=== PATIENT | female | born 1980 | race Caucasian/White ===

== ENCOUNTER 2018-04-12 09:23 | Outpatient (RCR) | payer SELFPAY ==
[2018-04-12 09:42] VITALS: BP 135/90; PULSE 73; RESP 18; TEMP 37; BMI 26.7
--- NOTE | 2018-04-12 11:52 | PCM.WC.HP ---
(1) Traumatic wound Status: Acute Current Visit: Yes Comment: Left middle finger. With fat layer exposed. History of Present Illness Date of Service: 04/12/18 Chief Complaint: Nonhealing left middle finger wound. History of Wound: Ms. Iraheta is a 37-year-old who was in her stable state of health until about 3 weeks ago when she sustained an injury to her left middle finger at work. She was working on some parts and had a finger crushed in the middle. She was subsequently seen at an day care center director center and had stitches to the wound. She has however noted persistent pain and swelling of the finger. She states that she has had 2 x-rays done without any significant concerns for osteomyelitis. She also denies any significant discharge from the wound. She has noted some change in color. Past Medical History Allergies/Adverse Reactions: Allergies erythromycin base Adverse Reaction (Verified 04/12/18 10:04) Nausea Smoking Status: Current every day smoker Review of Systems Constitutional: Denies: Anorexia, Chills, Fever Eyes: Denies: Blurred vision, Pain, Redness HEENT: Denies: Difficulty Swallowing Cardiovascular: Denies: Chest Pain, Chest Tightness Respiratory: Denies: Cough, Hemoptysis Gastrointestinal: Denies: Abdominal Pain, Hematemesis, Vomiting Genitourinary: Denies: Hematuria Skin: Denies: Jaundice - Physical Exam Vital Signs Temp Pulse Resp BP 98.6 F 73 18 135/90 H 04/12/18 09:42 04/12/18 09:42 04/12/18 09:42 04/12/18 09:42 General: Alert, Oriented x3, Cooperative, No apparent distress HEENT: Atraumatic, Normocephalic Oral: Moist Mucosa Neck: Supple Lungs: Clear to auscultation, Normal air movement Cardiovascular: Regular rate, Regular Rhythm Abdomen: Non Tender Extremities: No cyanosis Skin: Ulcer/ Wound Wound Measurements and Assessment WC - Nurse 1 - General Ulcer Measurement Start: 04/12/18 09:10 Freq: Status: Active Protocol: Activity Type Activity Date Activity User E-Sign Co-Sign Detail Recorded Client Recorded Date Recorded By Document 04/12/18 09:42 DL [id number] 04/12/18 09:57 DL 04/12/18 09:42 Wound Center Nurse 1 [Ulcer Assessment] #1 LMidle Finger -Current Size (cm) - Length 2 -Current Size (cm) - Width 1.2 -Current Size (cm) - Depth 0.1 -Total Square Cm 2.4 -Photo Taken Yes -Classification - Thickness Unclassifiable (Eschar Covered ) -Exudate Amt Small -Exudate Type Serosanguineous -Wound Margin Distinct, Outline Attached -Granulation Amt None Present (0 %) -Necrosis Amt Large (67-100%) -Necrotic Tissue Type Eschar -Structure Exposed N/A -Texture (Deborah-wound Skin Appearance) Localized Edema Scarring -Moisture (Deborah-wound Skin Appearance Maceration ) -Color (Deborah-wound Skin Appearance) Ecchymosis Erythema Mottled -Temperature (Deborah-wound Skin No Abnormality Appearance) (Pt Warm) -Tenderness on Palpation (Deborah-wound No Skin Appearance) -Ulcer Cleansing Rinsed/ Irrigated with Saline -Foul Odor after Cleansing No -Anesthetic Used 4% Lidocaine Solution WC - Nurse 2 - General Ulcer CM Notes Start: 04/12/18 09:10 Freq: Status: Active Protocol: Activity Type Activity Date Activity User E-Sign Co-Sign Detail Recorded Client Recorded Date Recorded By Document 04/12/18 10:24 MW [id number] 04/12/18 10:38 MW 04/12/18 10:24 Wound Center Nurse 2 [Procedure/Treatment] -Time 10:25 -Correct Patient Yes -Correct Side, Site, Position Yes -Correct Procedure Yes -Procedure Performed Yes -Type of Procedure Debridement -Clinical Debridement Subcutaneous -Post Debridement Size (cm) - Length 2.5 -Post Debridement Size (cm) - Width 1.0 -Post Debridement Size (cm) - Depth 0.2 -Total Square Cm 2.50 -Wound/Ulcer Outcome Not Healed -Ulcer Cleansing Rinsed/ Irrigated with Saline -Foul Odor after Cleansing No -Bioengineered Tissue No -Bleeding Controlled with Pressure -Offloading No -Treatment Response Procedure Tolerated Well [See Physician Procedure note for Specifics] Pain Scale: 0-10 Numeric [Pain] -Is Patient Pain Free? Yes Musculoskeletal: No Muscle Wasting Neurological: Cranial nerves II-XII grossly intact Debridement Note Post-Debridement Measurements/Treatment WC - Nurse 2 - General Ulcer CM Notes Start: 04/12/18 09:10 Freq: Status: Active Protocol: Activity Type Activity Date Activity User E-Sign Co-Sign Detail Recorded Client Recorded Date Recorded By Document 04/12/18 10:24 MW [id number] 04/12/18 10:38 MW 04/12/18 10:24 Wound Center Nurse 2 #1 LMidle Finger -Time 10:25 -Correct Patient Yes -Correct Side, Site, Position Yes -Correct Procedure Yes -Procedure Performed Yes -Type of Procedure Debridement -Clinical Debridement Subcutaneous -Post Debridement Size (cm) - Length 2.5 -Post Debridement Size (cm) - Width 1.0 -Post Debridement Size (cm) - Depth 0.2 -Total Square Cm 2.50 -Wound/Ulcer Outcome Not Healed -Ulcer Cleansing Rinsed/ Irrigated with Saline -Foul Odor after Cleansing No -Bioengineered Tissue No -Bleeding Controlled with Pressure -Offloading No -Treatment Response Procedure Tolerated Well Pain Scale: 0-10 Numeric Is Patient Pain Free? Yes Wound debrided: Left middle finger Wound Grade/Stage: Stage II Type of Debridement: Excisional debridement Anesthesia Used: 4% Lidocaine Solution Depth: Down to and including healthy tissue, in the subcutaneous layer Percentage of wound debrided: 100 Instrument Used: Forceps, - - Scissors Tissue Removed: Devitalized tissue Severity: Fat Layer Exposed Amount of bleeding with debridement: Mild Bleeding Controlled with: Pressure Patient tolerated procedure well Assessment/Plan Active Problems Traumatic wound (Acute) Left middle finger. With fat layer exposed. Assessment: Nonhealing traumatic wound to left middle finger with fat layer exposed. Plan: Debridement done as documented above. Significant pain noted however tolerated procedure okay. Superficial skin appears somewhat necrotic however underlying wound appears to have good granulation tissue and no significant discharge. Cultures taken. Will get records from [facility]. For now dress wound daily with Sheila, gauze over top. Continue splinting. Applied loosely. Elevate extremity as often as possible. Will start on nifedipine for vasodilation. She was however advised to go to the emergency room if she notes significant discoloration. All the questions were answered and she was advised to call with any further questions or concerns. Follow-up in 1 week. This note was generated with [employer]EV[employer] software. It may contain incorrect words, spelling, and punctuation that were not noted in checking the note before signing.
--- NOTE | 2018-04-12 11:56 | HP.PCM_ITS ---
(1) Traumatic wound Status: Acute Current Visit: Yes Comment: Left middle finger. With fat lay er exposed. History of Present Illness Date of Service: 04/12/18 Chief Complaint: Nonhealing left middle finger wound. History of Wound: Ms. Iraheta is a 37-year-old who was in her stable state of health until about 3 weeks ago when she sustained an injury to her left middle finger at work. She was working on some parts and had a finger crushed in the middle. 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 She has however noted persistent pain and swelling of the finger. She states that she has had 2 x-rays done without any significant concerns for osteomyelitis. She also denies any significant discharge from the wound. She has noted some change in color. Past Medical History Allergies/Adverse Reactions: Allergies erythromycin base Adverse Reaction (Verified 04/12/18 10:04) Nausea Smoking Status: Current every day smoker Review of Systems Constitutional: Denies: Anorexia, Chills, Fever Eyes: Denies: Blurred vision, Pain, Redness HEENT: Denies: Difficulty Swallowing Cardiovascular: Denies: Chest Pain, Chest Tightness Respiratory: Denies: Cough, Hemoptysis Gastrointestinal: Denies: Abdominal Pain, Hematemesis, Vomiting Genitourinary: Denies: Hematuria Skin: Denies: Jaundice - Physical Exam Vital Signs Temp Pulse Resp BP 98.6 F 73 18 135/90 H 04/12/18 09:42 04/12/18 09:42 04/12/18 09:42 04/12/18 09:42 General: Alert, Oriented x3, Cooperative, No apparent distress HEENT: Atraumatic, Normocephalic Oral: Moist Mucosa Neck: Supple Lungs: Clear to auscultation, Normal air movement Cardiovascular: Regular rate, Regular Rhythm Abdomen: Non Tender Extremities: No cyanosis Skin: Ulcer/ Wound Wound Measurements and Assessment WC - Nurse 1 - General Ulcer Measurement Start: 04/12/18 09:10 Freq: Status: Active Protocol: Activity Type Activity Date Activity User E-Sign Co-Sign Detail Recorded Client Recorded Date Recorded By Document 04/12/18 09:42 DL [id number] 04/12/18 09:57 DL 04/12/18 09:42 Wound Center Nurse 1 [Ulcer Assessment] #1 LMidle Finger -Current Size (cm) - Length 2 -Current Size (cm) - Width 1.2 -Current Size (cm) - Depth 0.1 -Total Square Cm 2.4 -Photo Taken Yes -Classification - Thickness Unclassifiable (Eschar Covered ) -Exudate Amt Small -Exudate Type Serosanguineous -Wound Margin Distinct, Outline Attached -Granulation Amt None Present (0 %) -Necrosis Amt Large (67-100%) -Necrotic Tissue Type Eschar -Structure Exposed N/A -Texture (Deborah-wound Skin Appearance) Localized Edema Scarring -Moisture (Deborah-wound Skin Appearance Maceration ) -Color (Deborah-wound Skin Appearance) Ecchymosis Erythema Mottled -Temperature (Deborah-wound Skin No Abnormality Appearance) (Pt Warm) -Tenderness on Palpation (Deborah-wound No Skin Appearance) -Ulcer Cleansing Rinsed/ Irrigated with Saline -Foul Odor after Cleansing No -Anesthetic Used 4% Lidocaine Solution WC - Nurse 2 - General Ulcer CM Notes Start: 04/12/18 09:10 Freq: Status: Active Protocol: Activity Type Activity Date Activity User E-Sign Co-Sign Detail Recorded Client Recorded Date Recorded By Document 04/12/18 10:24 MW [id number] 04/12/18 10:38 MW 04/12/18 10:24 Wound Center Nurse 2 [Procedure/Treatment] -Time 10:25 -Correct Patient Yes -Correct Side, Site, Position Yes -Correct Procedure Yes -Procedure Performed Yes -Type of Procedure Debridement -Clinical Debridement Subcutaneous -Post Debridement Size (cm) - Length 2.5 -Post Debridement Size (cm) - Width 1.0 -Post Debridement Size (cm) - Depth 0.2 -Total Square Cm 2.50 -Wound/Ulcer Outcome Not Healed -Ulcer Cleansing Rinsed/ Irrigated with Saline -Foul Odor after Cleansing No -Bioengineered Tissue No -Bleeding Controlled with Pressure -Offloading No -Treatment Response Procedure Tolerated Well [See Physician Procedure note for Specifics] Pain Scale: 0-10 Numeric [Pain] -Is Patient Pain Free? Yes Musculoskeletal: No Muscle Wasting Neurological: Cranial nerves II-XII grossly intact Debridement Note Post-Debridement Measurements/Treatment WC - Nurse 2 - General Ulcer CM Notes Start: 04/12/18 09:10 Freq: Status: Active Protocol: Activity Type Activity Date Activity User E-Sign Co-Sign Detail Recorded Client Recorded Date Recorded By Document 04/12/18 10:24 MW [id number] 04/12/18 10:38 MW 04/12/18 10:24 Wound Center Nurse 2 #1 LMidle Finger -Time 10:25 -Correct Patient Yes -Correct Side, Site, Position Yes -Correct Procedure Yes -Procedure Performed Yes -Type of Procedure Debridement -Clinical Debridement Subcutaneous -Post Debridement Size (cm) - Length 2.5 -Post Debridement Size (cm) - Width 1.0 -Post Debridement Size (cm) - Depth 0.2 -Total Square Cm 2.50 -Wound/Ulcer Outcome Not Healed -Ulcer Cleansing Rinsed/ Irrigated with Saline -Foul Odor after Cleansing No -Bioengineered Tissue No -Bleeding Controlled with Pressure -Offloading No -Treatment Response Procedure Tolerated Well Pain Scale: 0-10 Numeric Is Patient Pain Free? Yes Wound debrided: Left middle finger Wound Grade/Stage: Stage II Type of Debridement: Excisional debridement Anesthesia Used: 4% Lidocaine Solution Depth: Down to and including healthy tissue, in the subcutaneous layer Percentage of wound debrided: 100 Instrument Used: Forceps, - - Scissors Tissue Removed: Devitalized tissue Severity: Fat Layer Exposed Amount of bleeding with debridement: Mild Bleeding Controlled with: Pressure Patient tolerated procedure well Assessment/Plan Active Problems Traumatic wound (Acute) Left middle finger. With fat layer exposed. Assessment: Nonhealing traumatic wound to left middle finger with fat layer e xposed. Plan: Debridement done as documented above. Significant pain noted however tolerated procedure okay. Superficial skin appears somewhat necrotic however underlying wound appears to have good granulation tissue and no significant discharge. Cultures taken. Will get records from [facility]. For now dress wound daily with Sheila, gauze over top. Continue splinting. Applied loosely. Elevate extremity as often as possible. Will start on nifedipine for vasodilation. She was however advised to go to the emergency room if she notes significant discoloration. All the questions were answered and she was advised to call with any further questions or concerns. Follow-up in 1 week. This note was generated with [employer] software. It may contain incorrect words, spelling, and punctuation that were not noted in checking the note before signing.
== END 2018-04-13 23:59 ==
LOC: WC 09:23
PROVIDERS: Referring Provider Internal Medicine; Visit Provider Internal Medicine
DX: S67.193A Crushing injury of left middle finger, initial encounter (principal); X58.XXXA Exposure to other specified factors, initial encounter; Y93.89 Activity, other specified; Y92.89 Other specified places as the place of occurrence of the external cause; Y99.0 Civilian activity done for income or pay; F17.200 Nicotine dependence, unspecified, uncomplicated
CPT/HCPCS: 11042; 87070; 87075; 87077; 87186; 87205; 99213; G0463

== ENCOUNTER 2018-05-10 08:00 | Outpatient (RCR) | payer SELFPAY ==
[2018-04-14 01:56] VITALS: BP 135/90; PULSE 73; RESP 18; TEMP 37
[2018-04-19 08:46] VITALS: BP 121/86; PULSE 81; RESP 16; TEMP 36.6; BMI 26.7
--- NOTE | 2018-04-19 11:43 | PCM.WC.PN ---
(1) Traumatic wound Status: Acute Current Visit: No Comment: Left middle finger. With fat layer exposed. Type of Wound Chief Complaint: Nonhealing left middle finger wound. History of Wound: Ms. Iraheta is a 37-year-old who was in her stable state of health until about 3 weeks ago when she sustained an injury to her left middle finger at work. She was working on some parts and had a finger crushed in the middle. 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 She has however noted persistent pain and swelling of the finger. She states that she has had 2 x-rays done without any significant concerns for osteomyelitis. She also denies any significant discharge from the wound. She has noted some change in color. Progress of Wound: Improving. No new concerns at this time. - Physical Exam Vital Signs Temp Pulse Resp BP 97.8 F 81 16 121/86 H 04/19/18 08:46 04/19/18 08:46 04/19/18 08:46 04/19/18 08:46 General: Alert, Oriented x3, Cooperative, No apparent distress HEENT: Atraumatic, Normocephalic Oral: Moist Mucosa Neck: Supple Lungs: Normal air movement Extremities: No cyanosis Skin: Ulcer/ Wound Wound Measurements and Assessment WC - Nurse 1 - General Ulcer Measurement Start: 04/19/18 08:44 Freq: Status: Active Protocol: Activity Type Activity Date Activity User E-Sign Co-Sign Detail Recorded Client Recorded Date Recorded By Document 04/19/18 08:46 MW [id number] 04/19/18 08:55 MW 04/19/18 08:46 Wound Center Nurse 1 [Ulcer Assessment] #1 LMidle Finger -Combined with other wound No -Current Size (cm) - Length 1.8 -Current Size (cm) - Width 0.7 -Current Size (cm) - Depth 0.1 -Total Square Cm 1.26 -Photo Taken No -Epithelialization None Present -Tunneling No -Undermining/Tunneling No -Circular Undermining No -Exudate Amt None Present -Wound Margin Flat & Intact -Granulation Amt None Present (0 %) -Granulation Quality N/A -Slough/Fibrin Yes -Necrosis Amt Large (67-100%) -Necrotic Tissue Type Adherent Slough -Structure Exposed N/A -Texture (Deborah-wound Skin Appearance) No Abnormality Assessed -Moisture (Deborah-wound Skin Appearance No Abnormality ) Assessed -Color (Deborah-wound Skin Appearance) No Abnormality Assessed -Temperature (Deborah-wound Skin No Abnormality Appearance) (Pt Warm) -Tenderness on Palpation (Deborah-wound Yes Skin Appearance) -Ulcer Cleansing Rinsed/ Irrigated with Saline -Foul Odor after Cleansing No -Anesthetic Used 4% Lidocaine Solution 5% Lidocaine Gel [Edema Assessment] -Lower Limb Edema Present No WC - Nurse 2 - General Ulcer CM Notes Start: 04/19/18 08:44 Freq: Status: Active Protocol: Activity Type Activity Date Activity User E-Sign Co-Sign Detail Recorded Client Recorded Date Recorded By Document 04/19/18 09:37 MW [id number] 04/19/18 09:43 MW 04/19/18 09:37 Wound Center Nurse 2 [Procedure/Treatment] #1 LMidle Finger -Time 09:37 -Correct Patient Yes -Correct Side, Site, Position Yes -Correct Procedure Yes -Procedure Performed Yes -Type of Procedure Debridement -Clinical Debridement Subcutaneous -Post Debridement Size (cm) - Length 2.0 -Post Debridement Size (cm) - Width 1.0 -Post Debridement Size (cm) - Depth 0.2 -Total Square Cm 2.00 -Wound/Ulcer Outcome Not Healed -Ulcer Cleansing Rinsed/ Irrigated with Saline -Foul Odor after Cleansing No -Bioengineered Tissue No -Bleeding Controlled with Pressure -Offloading No -Treatment Response Procedure Tolerated Well [See Physician Procedure note for Specifics] Pain Scale: 0-10 Numeric [Pain] -Is Patient Pain Free? Yes Neurological: Cranial nerves II-XII grossly intact Psych/Mental Status: Normal Affect Debridement Note Post-Debridement Measurements/Treatment WC - Nurse 2 - General Ulcer CM Notes Start: 04/19/18 08:44 Freq: Status: Active Protocol: Activity Type Activity Date Activity User E-Sign Co-Sign Detail Recorded Client Recorded Date Recorded By Document 04/19/18 09:37 MW [id number] 04/19/18 09:43 MW 04/19/18 09:37 Wound Center Nurse 2 #1 LMidle Finger -Time 09:37 -Correct Patient Yes -Correct Side, Site, Position Yes -Correct Procedure Yes -Procedure Performed Yes -Type of Procedure Debridement -Clinical Debridement Subcutaneous -Post Debridement Size (cm) - Length 2.0 -Post Debridement Size (cm) - Width 1.0 -Post Debridement Size (cm) - Depth 0.2 -Total Square Cm 2.00 -Wound/Ulcer Outcome Not Healed -Ulcer Cleansing Rinsed/ Irrigated with Saline -Foul Odor after Cleansing No -Bioengineered Tissue No -Bleeding Controlled with Pressure -Offloading No -Treatment Response Procedure Tolerated Well Pain Scale: 0-10 Numeric Is Patient Pain Free? Yes Wound debrided: Left middle finger Wound Grade/Stage: Stage II Type of Debridement: Excisional debridement Anesthesia Used: 4% Lidocaine Solution Depth: Down to and including healthy tissue, in the subcutaneous layer Percentage of wound debrided: 100 Instrument Used: 3mm curette, #15 blade, Forceps Tissue Removed: Slough and devitalized tissue Severity: Fat Layer Exposed Amount of bleeding with debridement: Mild Bleeding Controlled with: Pressure Patient tolerated procedure well Assessment/Plan Assessment: Nonhealing traumatic wound to left middle finger with fat layer exposed. Plan: Debridement done as documented above. Tolerated debridement better today. Left middle finger swelling is also improved. Better vascularization. Cultures reviewed, will hold off antibiotics for now. Continue Sheila daily with Adaptic over top. Continue splinting. Apply loosely. Elevate extremity as often as possible. Yet to start nifedipine. She was however advised to go to the emergency room if she notes significant discoloration. All the questions were answered and she was advised to call with any further questions or concerns. Follow-up in 1 week. This note was generated with [employer] dictation software. It may contain incorrect words, spelling, and punctuation that were not noted in checking the note before signing.
--- NOTE | 2018-04-19 11:46 | PN.PCM_ITS ---
(1) Traumatic wound Status: Acute Current Visit: No Comment: Left middle finger. With fat layer exposed. Type of Wound Chief Complaint: Nonhealing left middle finger wound. History of Wound: Ms. Iraheta is a 37-year-old who was in her stable state of health until about 3 weeks ago when she sustained an injury to her left middle finger at work. She was working on some parts and had a finger crushed in the middle. She was subsequently seen at an [facility] and had stitches to the wound. She has however noted persistent pain and swelling of the finger. She states that she has had 2 x-rays done without any significant concerns for osteomyelitis. She also denies any significant discharge from the wound. She has noted some change in color. Progress of Wound: Improving. No new concerns at this time. - Physical Exam Vital Signs Temp Pulse Resp BP 97.8 F 81 16 121/86 H 04/19/18 08:46 04/19/18 08:46 04/19/18 08:46 04/19/18 08:46 General: Alert, Oriented x3, Cooperative, No apparent distress HEENT: Atraumatic, Normocephalic Oral: Moist Mucosa Neck: Supple Lungs: Normal air movement Extremities: No cyanosis Skin: Ulcer/ Wound Wound Measurements and Assessment WC - Nurse 1 - General Ulcer Measurement Start: 04/19/18 08:44 Freq: Status: Active Protocol: Activity Type Activity Date Activity User E-Sign Co-Sign Detail Recorded Client Recorded Date Recorded By Document 04/19/18 08:46 MW [id number] 04/19/18 08:55 MW 04/19/18 08:46 Wound Center Nurse 1 [Ulcer Assessment] #1 LMidle Finger -Combined with other wound No -Current Size (cm) - Length 1.8 -Current Size (cm) - Width 0.7 -Current Size (cm) - Depth 0.1 -Total Square Cm 1.26 -Photo Taken No -Epithelialization None Present -Tunneling No -Undermining/Tunneling No -Circular Undermining No -Exudate Amt None Present -Wound Margin Flat & Intact -Granulation Amt None Present (0 %) -Granulation Quality N/A -Slough/Fibrin Yes -Necrosis Amt Large (67-100%) -Necrotic Tissue Type Adherent Slough -Structure Exposed N/A -Texture (Deborah-wound Skin Appearance) No Abnormality Assessed -Moisture (Deborah-wound Skin Appearance No Abnormality ) Assessed -Color (Deborah-wound Skin Appearance) No Abnormality Assessed -Temperature (Deborah-wound Skin No Abnormality Appearance) (Pt Warm) -Tenderness on Palpation (Deborah-wound Yes Skin Appearance) -Ulcer Cleansing Rinsed/ Irrigated with Saline -Foul Odor after Cleansing No -Anesthetic Used 4% Lidocaine Solution 5% Lidocaine Gel [Edema Assessment] -Lower Limb Edema Present No WC - Nurse 2 - General Ulcer CM Notes Start: 04/19/18 08:44 Freq: Status: Active Protocol: Activity Type Activity Date Activity User E-Sign Co-Sign Detail Recorded Client Recorded Date Recorded By Document 04/19/18 09:37 MW [id number] 04/19/18 09:43 MW 04/19/18 09:37 Wound Center Nurse 2 [Procedure/Treatment] #1 LMidle Finger -Time 09:37 -Correct Patient Yes -Correct Side, Site, Position Yes -Correct Procedure Yes -Procedure Performed Yes -Type of Procedure Debridement -Clinical Debridement Subcutaneous -Post Debridement Size (cm) - Length 2.0 -Post Debridement Size (cm) - Width 1.0 -Post Debridement Size (cm) - Depth 0.2 -Total Square Cm 2.00 -Wound/Ulcer Outcome Not Healed -Ulcer Cleansing Rinsed/ Irrigated with Saline -Foul Odor after Cleansing No -Bioengineered Tissue No -Bleeding Controlled with Pressure -Offloading No -Treatment Response Procedure Tolerated Well [See Physician Procedure note for Specifics] Pain Scale: 0-10 Numeric [Pain] -Is Patient Pain Free? Yes Neurological: Cranial nerves II-XII grossly intact Psych/Mental Status: Normal Affect Debridement Note Post-Debridement Measurements/Treatment WC - Nurse 2 - General Ulcer CM Notes Start: 04/19/18 08:44 Freq: Status: Active Protocol: Activity Type Activity Date Activity User E-Sign Co-Sign Detail Recorded Client Recorded Date Recorded By Document 04/19/18 09:37 MW [id number] 04/19/18 09:43 MW 04/19/18 09:37 Wound Center Nurse 2 #1 LMidle Finger -Time 09:37 -Correct Patient Yes -Correct Side, Site, Position Yes -Correct Procedure Yes -Procedure Performed Yes -Type of Procedure Debridement -Clinical Debridement Subcutaneous -Post Debridement Size (cm) - Length 2.0 -Post Debridement Size (cm) - Width 1.0 -Post Debridement Size (cm) - Depth 0.2 -Total Square Cm 2.00 -Wound/Ulcer Outcome Not Healed -Ulcer Cleansing Rinsed/ Irrigated with Saline -Foul Odor after Cleansing No -Bioengineered Tissue No -Bleeding Controlled with Pressure -Offloading No -Treatment Response Procedure Tolerated Well Pain Scale: 0-10 Numeric Is Patient Pain Free? Yes Wound debrided: Left middle finger Wound Grade/Stage: Stage II Type of Debridement: Excisional debridement Anesthesia Used: 4% Lidocaine Solution Depth: Down to and including healthy tissue, in the subcutaneous layer Percentage of wound debrided: 100 Instrument Used: 3mm curette, #15 blade, Forceps Tissue Removed: Slough and devitalized tissue Severity: Fat Layer Exposed Amount of bleeding with debridement: Mild Bleeding Controlled with: Pressure Patient tolerated procedure well Assessment/Plan Assessment: Nonhealing traumatic wound to left middle finger with fat layer exposed. Plan: Debridement done as documented above. Tolerated debridement better today. Left middle finger swelling is also improved. Better vascularization. Cultures reviewed, will hold off antibiotics for now. Continue Sheila daily with Adaptic over top. Continue splinting. Apply loosely. Elevate extremity as often as possible. Yet to start nifedipine. She was however advised to go t o the emergency room if she notes significant discoloration. All the questions were answered and she was advised to call with any further questions or concerns. Follow-up in 1 week. This note was generated with [employer] dictation software. It may contain incorrect words, spelling, and punctuation that were not noted in checking the note before signing.
[2018-04-26 08:13] VITALS: BP 130/90; PULSE 78; RESP 18; TEMP 37.2; BMI 26.7
--- NOTE | 2018-04-26 09:38 | PCM.WC.PN ---
(1) Traumatic wound Status: Acute Current Visit: No Comment: Left middle finger. With fat layer exposed. Type of Wound Chief Complaint: Nonhealing left middle finger wound. History of Wound: Ms. Iraheta is a 37-year-old who was in her stable state of health until about 3 weeks ago when she sustained an injury to her left middle finger at work. She was working on some parts and had a finger crushed in the middle. She was subsequently seen at an [facility] and had stitches to the wound. She has however noted persistent pain and swelling of the finger. She states that she has had 2 x-rays done without any significant concerns for osteomyelitis. She also denies any significant discharge from the wound. She has noted some change in color. Progress of Wound: Improving. No new concerns at this time. - Physical Exam Vital Signs Temp Pulse Resp BP 98.9 F 78 18 130/90 H 04/26/18 08:13 04/26/18 08:13 04/26/18 08:13 04/26/18 08:13 General: Alert, Oriented x3, Cooperative, No apparent distress HEENT: Atraumatic, Normocephalic Oral: Moist Mucosa Neck: Supple Lungs: Normal air movement Abdomen: Non Tender Extremities: No cyanosis Skin: Ulcer/ Wound Wound Measurements and Assessment WC - Nurse 1 - General Ulcer Measurement Start: 04/19/18 08:44 Freq: Status: Active Protocol: Activity Type Activity Date Activity User E-Sign Co-Sign Detail Recorded Client Recorded Date Recorded By Document 04/26/18 08:13 AN [id number] 04/26/18 08:25 AN 04/26/18 08:13 Wound Center Nurse 1 [Ulcer Assessment] #1 LMidle Finger -Current Size (cm) - Length 1.5 -Current Size (cm) - Width 1.0 -Current Size (cm) - Depth 0.1 -Total Square Cm 1.50 -Photo Taken No -Epithelialization None Present -Tunneling No -Undermining/Tunneling No -Circular Undermining No -Classification - Thickness Full Thickness without Exposed Support Structure -Exudate Amt Small -Exudate Type Serosanguineous -Wound Margin Distinct, Outline Attached -Granulation Amt Small (1-33%) -Granulation Quality Red -Slough/Fibrin Yes -Necrosis Amt Medium (34-66%) -Necrotic Tissue Type Eschar -Structure Exposed None/Limited to Skin Breakdown -Texture (Deborah-wound Skin Appearance) Assessed -Moisture (Deborah-wound Skin Appearance Assessed ) -Color (Deborah-wound Skin Appearance) Assessed -Temperature (Deborah-wound Skin No Abnormality Appearance) (Pt Warm) -Tenderness on Palpation (Deborah-wound Yes Skin Appearance) -Ulcer Cleansing Rinsed/ Irrigated with Saline -Foul Odor after Cleansing No -Anesthetic Used 4% Lidocaine Solution 5% Lidocaine Gel - Nurse 2 - General Ulcer CM Notes Start: 04/19/18 08:44 Freq: Status: Active Protocol: Activity Type Activity Date Activity User E-Sign Co-Sign Detail Recorded Client Recorded Date Recorded By Document 04/26/18 08:39 MW [id number] 04/26/18 08:45 MW 04/26/18 08:39 Wound Center Nurse 2 [Procedure/Treatment] -Time 08:39 -Correct Patient Yes -Correct Side, Site, Position Yes -Correct Procedure Yes -Procedure Performed Yes -Type of Procedure Debridement -Clinical Debridement Subcutaneous -Post Debridement Size (cm) - Length 1.3 -Post Debridement Size (cm) - Width 0.6 -Post Debridement Size (cm) - Depth 0.1 -Total Square Cm 0.78 -Wound/Ulcer Outcome Not Healed -Ulcer Cleansing Rinsed/ Irrigated with Saline -Foul Odor after Cleansing No -Bioengineered Tissue No -Bleeding Controlled with Pressure -Offloading No -Treatment Response Procedure Tolerated Well [See Physician Procedure note for Specifics] Pain Scale: 0-10 Numeric [Pain] -Is Patient Pain Free? Yes Musculoskeletal: No Muscle Wasting Neurological: Cranial nerves II-XII grossly intact Psych/Mental Status: Normal Affect Debridement Note Post-Debridement Measurements/Treatment - Nurse 2 - General Ulcer CM Notes Start: 04/19/18 08:44 Freq: Status: Active Protocol: Activity Type Activity Date Activity User E-Sign Co-Sign Detail Recorded Client Recorded Date Recorded By Document 04/19/18 09:37 MW [id number] 04/19/18 09:43 MW Document 04/26/18 08:39 MW [id number] 04/26/18 08:45 MW 04/19/18 04/26/18 09:37 08:39 Wound Center Nurse 2 #1 LMidle Finger -Time 09:37 08:39 -Correct Patient Yes Yes -Correct Side, Site, Position Yes Yes -Correct Procedure Yes Yes -Procedure Performed Yes Yes -Type of Procedure Debridement Debridement -Clinical Debridement Subcutaneous Subcutaneous -Post Debridement Size (cm) - Length 2.0 1.3 -Post Debridement Size (cm) - Width 1.0 0.6 -Post Debridement Size (cm) - Depth 0.2 0.1 -Total Square Cm 2.00 0.78 -Wound/Ulcer Outcome Not Healed Not Healed -Ulcer Cleansing Rinsed/ Rinsed/ Irrigated with Irrigated with Saline Saline -Foul Odor after Cleansing No No -Bioengineered Tissue No No -Bleeding Controlled with Pressure Pressure -Offloading No No -Treatment Response Procedure Procedure Tolerated Well Tolerated Well Pain Scale: 0-10 Numeric Is Patient Pain Free? Yes Yes Wound debrided: Left middle finger Wound Grade/Stage: Stage II Type of Debridement: Excisional debridement Anesthesia Used: 4% Lidocaine Solution Depth: Down to and including healthy tissue, in the subcutaneous layer Percentage of wound debrided: 100 Instrument Used: 5mm curette, #15 blade, Forceps Tissue Removed: Slough and devitalized tissue Severity: Fat Layer Exposed Amount of bleeding with debridement: Mild Bleeding Controlled with: Pressure Patient tolerated procedure well Assessment/Plan Assessment: Nonhealing traumatic wound to left middle finger with fat layer exposed. Plan: Good improvement in the past week. Debridement done as documented above. Procedure was well-tolerated. Better vascularization. Continue Sheila daily with Adaptic over top. Continue splinting. Apply loosely. Elevate extremity as often as possible. All the questions were answered and she was advised to call with any further questions or concerns. Follow-up in 1 week. This note was generated with [employer] dictation software. It may contain incorrect words, spelling, and punctuation that were not noted in checking the note before signing.
[2018-05-03 09:06] VITALS: BP 123/80; PULSE 77; RESP 18; TEMP 37.4; BMI 26.7
--- NOTE | 2018-05-03 10:14 | PCM.WC.PN ---
(1) Traumatic wound Status: Acute Current Visit: Yes Comment: Left middle finger. With fat layer exposed. Type of Wound Chief Complaint: Nonhealing left middle finger wound. History of Wound: Ms. Iraheta is a 37-year-old who was in her stable state of health until about 3 weeks ago when she sustained an injury to her left middle finger at work. She was working on some parts and had a finger crushed in the middle. She was subsequently seen [facility] and had stitches to the wound. She has however noted persistent pain and swelling of the finger. She states that she has had 2 x-rays done without any significant concerns for osteomyelitis. She also denies any significant discharge from the wound. She has noted some change in color. Progress of Wound: Improving. No new concerns at this time. - Physical Exam Vital Signs Temp Pulse Resp BP 99.3 F H 77 18 123/80 H 05/03/18 09:06 05/03/18 09:06 05/03/18 09:06 05/03/18 09:06 General: Alert, Oriented x3, Cooperative, No apparent distress HEENT: Atraumatic, Normocephalic Oral: Moist Mucosa Neck: Supple Lungs: Normal air movement Cardiovascular: Regular rate, Regular Rhythm Extremities: No cyanosis Skin: Ulcer/ Wound Wound Measurements and Assessment WC - Nurse 1 - General Ulcer Measurement Start: 04/19/18 08:44 Freq: Status: Active Protocol: Activity Type Activity Date Activity User E-Sign Co-Sign Detail Recorded Client Recorded Date Recorded By Document 05/03/18 09:06 [id number] 05/03/18 09:14 AN 05/03/18 09:06 Wound Center Nurse 1 [Ulcer Assessment] #1 LMidle Finger -Current Size (cm) - Length 0.8 -Current Size (cm) - Width 0.3 -Current Size (cm) - Depth 0.1 -Total Square Cm 0.24 -Photo Taken No -Epithelialization None Present -Tunneling No -Undermining/Tunneling No -Classification - Thickness Full Thickness without Exposed Support Structure -Exudate Amt None Present -Wound Margin Distinct, Outline Attached -Granulation Amt Small (1-33%) -Granulation Quality Red -Slough/Fibrin Yes -Necrosis Amt Large (67-100%) -Necrotic Tissue Type Adherent Slough -Structure Exposed None/Limited to Skin Breakdown -Texture (Deborah-wound Skin Appearance) Assessed -Moisture (Deborah-wound Skin Appearance Assessed ) -Color (Deborah-wound Skin Appearance) Assessed -Temperature (Deborah-wound Skin No Abnormality Appearance) (Pt Warm) -Tenderness on Palpation (Deborah-wound Yes Skin Appearance) -Ulcer Cleansing Rinsed/ Irrigated with Saline -Foul Odor after Cleansing No -Anesthetic Used 5% Lidocaine Gel WC - Nurse 2 - General Ulcer CM Notes Start: 04/19/18 08:44 Freq: Status: Active Protocol: Activity Type Activity Date Activity User E-Sign Co-Sign Detail Recorded Client Recorded Date Recorded By Document 05/03/18 09:42 MW [id number] 05/03/18 09:44 MW 05/03/18 09:42 Wound Center Nurse 2 [Procedure/Treatment] -Time 09:43 -Correct Patient Yes -Correct Side, Site, Position Yes -Correct Procedure Yes -Procedure Performed Yes -Type of Procedure Debridement -Clinical Debridement Subcutaneous -Post Debridement Size (cm) - Length 1.1 -Post Debridement Size (cm) - Width 0.5 -Post Debridement Size (cm) - Depth 0.1 -Total Square Cm 0.55 -Wound/Ulcer Outcome Not Healed -Ulcer Cleansing Rinsed/ Irrigated with Saline -Foul Odor after Cleansing No -Bioengineered Tissue No -Bleeding Controlled with Pressure -Offloading No -Treatment Response Procedure Tolerated Well [See Physician Procedure note for Specifics] Pain Scale: 0-10 Numeric [Pain] -Is Patient Pain Free? Yes Musculoskeletal: No Muscle Wasting Neurological: Cranial nerves II-XII grossly intact Psych/Mental Status: Normal Affect Debridement Note Post-Debridement Measurements/Treatment - Nurse 2 - General Ulcer CM Notes Start: 04/19/18 08:44 Freq: Status: Active Protocol: Activity Type Activity Date Activity User E-Sign Co-Sign Detail Recorded Client Recorded Date Recorded By Document 04/19/18 09:37 MW [id number] 04/19/18 09:43 MW Document 04/26/18 08:39 MW [id number] 04/26/18 08:45 MW Document 05/03/18 09:42 MW [id number] 05/03/18 09:44 MW 04/19/18 04/26/18 05/03/18 09:37 08:39 09:42 Wound Center Nurse 2 #1 LMidle Finger -Time 09:37 08:39 09:43 -Correct Patient Yes Yes Yes -Correct Side, Site, Position Yes Yes Yes -Correct Procedure Yes Yes Yes -Procedure Performed Yes Yes Yes -Type of Procedure Debridement Debridement Debridement -Clinical Debridement Subcutaneous Subcutaneous Subcutaneous -Post Debridement Size (cm) - Length 2.0 1.3 1.1 -Post Debridement Size (cm) - Width 1.0 0.6 0.5 -Post Debridement Size (cm) - Depth 0.2 0.1 0.1 -Total Square Cm 2.00 0.78 0.55 -Wound/Ulcer Outcome Not Healed Not Healed Not Healed -Ulcer Cleansing Rinsed/ Rinsed/ Rinsed/ Irrigated with Irrigated with Irrigated with Saline Saline Saline -Foul Odor after Cleansing No No No -Bioengineered Tissue No No No -Bleeding Controlled with Pressure Pressure Pressure -Offloading No No No -Treatment Response Procedure Procedure Procedure Tolerated Well Tolerated Well Tolerated Well Pain Scale: 0-10 Numeric Is Patient Pain Free? Yes Yes Yes Wound debrided: Left middle finger Wound Grade/Stage: Stage II Type of Debridement: Excisional debridement Anesthesia Used: 4% Lidocaine Solution Depth: Down to and including healthy tissue, in the subcutaneous layer Percentage of wound debrided: 100 Instrument Used: 3mm curette Tissue Removed: Slough and devitalized tissue Severity: Fat Layer Exposed Amount of bleeding with debridement: Mild Bleeding Controlled with: Pressure Patient tolerated procedure well Assessment/Plan Active Problems Traumatic wound (Acute) Left middle finger. With fat layer exposed. Assessment: Nonhealing traumatic wound to left middle finger with fat layer exposed. Plan: Continues to show good improvement. Debridement done as documented above. Procedure was well-tolerated. Continue Sheila daily with Adaptic over top. Continue splinting. Apply loosely. Elevate extremity as often as possible. All her questions were answered and she was advised to call with any further questions or concerns. Follow-up in 1 week. This note was generated with [employer] software. It may contain incorrect words, spelling, and punctuation that were not noted in checking the note before signing.
--- NOTE | 2018-05-03 10:17 | PN.PCM_ITS ---
(1) Traumatic wound Status: Acute Current Visit: Yes Comment: Left middle finger. With fat lay er exposed. Type of Wound Chief Complaint: Nonhealing left middle finger wound. History of Wound: Ms. Iraheta is a 37-year-old who was in her stable state of health until about 3 weeks ago when she sustained an injury to her left middle finger at work. She was working on some parts and had a finger crushed in the middle. She was subsequently seen at an healthcare advisory services manager center and had stitches to the wound. She has however noted persistent pain and swelling of the finger. She states that she has had 2 x-rays done without any significant concerns for osteomyelitis. She also denies any significant discharge from the wound. She has noted some change in color. Progress of Wound: Improving. No new concerns at this time. - Physical Exam Vital Signs Temp Pulse Resp BP 99.3 F H 77 18 123/80 H 05/03/18 09:06 05/03/18 09:06 05/03/18 09:06 05/03/18 09:06 General: Alert, Oriented x3, Cooperative, No apparent distress HEENT: Atraumatic, Normocephalic Oral: Moist Mucosa Neck: Supple Lungs: Normal air movement Cardiovascular: Regular rate, Regular Rhythm Extremities: No cyanosis Skin: Ulcer/ Wound Wound Measurements and Assessment WC - Nurse 1 - General Ulcer Measurement Start: 04/19/18 08:44 Freq: Status: Active Protocol: Activity Type Activity Date Activity User E-Sign Co-Sign Detail Recorded Client Recorded Date Recorded By Document 05/03/18 09:06 [id number] 05/03/18 09:14 AN 05/03/18 09:06 Wound Center Nurse 1 [Ulcer Assessment] #1 LMidle Finger -Current Size (cm) - Length 0.8 -Current Size (cm) - Width 0.3 -Current Size (cm) - Depth 0.1 -Total Square Cm 0.24 -Photo Taken No -Epithelialization None Present -Tunneling No -Undermining/Tunneling No -Classification - Thickness Full Thickness without Exposed Support Structure -Exudate Amt None Present -Wound Margin Distinct, Outline Attached -Granulation Amt Small (1-33%) -Granulation Quality Red -Slough/Fibrin Yes -Necrosis Amt Large (67-100%) -Necrotic Tissue Type Adherent Slough -Structure Exposed None/Limited to Skin Breakdown -Texture (Deborah-wound Skin Appearance) Assessed -Moisture (Deborah-wound Skin Appearance Assessed ) -Color (Deborah-wound Skin Appearance) Assessed -Temperature (Deborah-wound Skin No Abnormality Appearance) (Pt Warm) -Tenderness on Palpation (Deborah-wound Yes Skin Appearance) -Ulcer Cleansing Rinsed/ Irrigated with Saline -Foul Odor after Cleansing No -Anesthetic Used 5% Lidocaine Gel WC - Nurse 2 - General Ulcer CM Notes Start: 04/19/18 08:44 Freq: Status: Active Protocol: Activity Type Activity Date Activity User E-Sign Co-Sign Detail Recorded Client Recorded Date Recorded By Document 05/03/18 09:42 MW [id number] 05/03/18 09:44 MW 05/03/18 09:42 Wound Center Nurse 2 [Procedure/Treatment] -Time 09:43 -Correct Patient Yes -Correct Side, Site, Position Yes -Correct Procedure Yes -Procedure Performed Yes -Type of Procedure Debridement -Clinical Debridement Subcutaneous -Post Debridement Size (cm) - Length 1.1 -Post Debridement Size (cm) - Width 0.5 -Post Debridement Size (cm) - Depth 0.1 -Total Square Cm 0.55 -Wound/Ulcer Outcome Not Healed -Ulcer Cleansing Rinsed/ Irrigated with Saline -Foul Odor after Cleansing No -Bioengineered Tissue No -Bleeding Controlled with Pressure -Offloading No -Treatment Response Procedure Tolerated Well [See Physician Procedure note for Specifics] Pain Scale: 0-10 Numeric [Pain] -Is Patient Pain Free? Yes Musculoskeletal: No Muscle Wasting Neurological: Cranial nerves II-XII grossly intact Psych/Mental Status: Normal Affect Debridement Note Post-Debridement Measurements/Treatment - Nurse 2 - General Ulcer CM Notes Start: 04/19/18 08:44 Freq: Status: Active Protocol: Activity Type Activity Date Activity User E-Sign Co-Sign Detail Recorded Client Recorded Date Recorded By Document 04/19/18 09:37 MW [id number] 04/19/18 09:43 MW Document 04/26/18 08:39 MW [id number] 04/26/18 08:45 MW Document 05/03/18 09:42 MW [id number] 05/03/18 09:44 MW 04/19/18 04/26/18 05/03/18 09:37 08:39 09:42 Wound Center Nurse 2 #1 LMidle Finger -Time 09:37 08:39 09:43 -Correct Patient Yes Yes Yes -Correct Side, Site, Position Yes Yes Yes -Correct Procedure Yes Yes Yes -Procedure Performed Yes Yes Yes -Type of Procedure Debridement Debridement Debridement -Clinical Debridement Subcutaneous Subcutaneous Subcutaneous -Post Debridement Size (cm) - Length 2.0 1.3 1.1 -Post Debridement Size (cm) - Width 1.0 0.6 0.5 -Post Debridement Size (cm) - Depth 0.2 0.1 0.1 -Total Square Cm 2.00 0.78 0.55 -Wound/Ulcer Outcome Not Healed Not Healed Not Healed -Ulcer Cleansing Rinsed/ Rinsed/ Rinsed/ Irrigated with Irrigated with Irrigated with Saline Saline Saline -Foul Odor after Cleansing No No No -Bioengineered Tissue No No No -Bleeding Controlled with Pressure Pressure Pressure -Offloading No No No -Treatment Response Procedure Procedure Procedure Tolerated Well Tolerated Well Tolerated Well Pain Scale: 0-10 Numeric Is Patient Pain Free? Yes Yes Yes Wound debrided: Left middle finger Wound Grade/Stage: Stage II Type of Debridement: Excisional debridement Anesthesia Used: 4% Lidocaine Solution Depth: Down to and including healthy tissue, in the subcutaneous layer Percentage of wound debrided: 100 Instrument Used: 3mm curette Tissue Removed: Slough and devitalized tissue Severity: Fat Layer Exposed Amount of bleeding with debridement: Mild Bleeding Controlled with: Pressure Patient tolerated procedure well Assessment/Plan Active Problems Traumatic wound (Acute) Left middle finger. With fat layer exposed. Assessment: Nonhealing traumatic wound to left middle finger with fat layer exposed. Plan: Continues to show good improvement. Debridement done as documented above. Procedure was well-tolerated. Continue Sheila daily with Adaptic over top. Continue splinting. Apply loosely. Elevate extremity as often as possible. All her questions were answered and she was advised to call with any further questions or concerns. Follow-up in 1 week. This note was generated with [employer] dictation software. It may contain incorrect words, spelling, and punctuation that were not noted in checking the note before signing.
[2018-05-10 08:13] VITALS: BP 130/78; PULSE 86; RESP 18; TEMP 35.9; BMI 26.7
--- NOTE | 2018-05-10 08:56 | PCM.WC.PN ---
(1) Traumatic wound Status: Acute Current Visit: Yes Comment: Left middle finger. With fat layer exposed. Type of Wound Chief Complaint: Nonhealing left middle finger wound. History of Wound: Ms. Iraheta is a 37-year-old who was in her stable state of health until about 3 weeks ago when she sustained an injury to her left middle finger at work. She was working on some parts and had a finger crushed in the middle. She was subsequently seen at an customer care agent center and had stitches to the wound. She has however noted persistent pain and swelling of the finger. She states that she has had 2 x-rays done without any significant concerns for osteomyelitis. She also denies any significant discharge from the wound. She has noted some change in color. Progress of Wound: Improving. No new concerns at this time. - Physical Exam Vital Signs Temp Pulse Resp BP 96.6 F L 86 18 130/78 H 05/10/18 08:13 05/10/18 08:13 05/10/18 08:13 05/10/18 08:13 General: Alert, Oriented x3, Cooperative, No apparent distress HEENT: Atraumatic, Normocephalic Oral: Moist Mucosa Neck: Supple Lungs: Normal air movement Abdomen: Non Tender Extremities: No cyanosis Skin: Ulcer/ Wound Wound Measurements and Assessment WC - Nurse 1 - General Ulcer Measurement Start: 04/19/18 08:44 Freq: Status: Active Protocol: Activity Type Activity Date Activity User E-Sign Co-Sign Detail Recorded Client Recorded Date Recorded By Document 05/10/18 08:13 AN [id number] 05/10/18 08:22 AN 05/10/18 08:13 Wound Center Nurse 1 [Ulcer Assessment] #1 LMidle Finger -Current Size (cm) - Length 0.6 -Current Size (cm) - Width 0.2 -Current Size (cm) - Depth 0.1 -Total Square Cm 0.12 -Photo Taken No -Tunneling No -Undermining/Tunneling No -Classification - Thickness Full Thickness without Exposed Support Structure -Exudate Amt None Present -Wound Margin Distinct, Outline Attached -Granulation Amt Large (67-100%) -Granulation Quality Red -Slough/Fibrin No -Necrosis Amt None Present (0 %) -Structure Exposed None/Limited to Skin Breakdown -Texture (Deborah-wound Skin Appearance) Assessed -Moisture (Deborah-wound Skin Appearance Assessed ) -Color (Deborah-wound Skin Appearance) Assessed -Temperature (Deborah-wound Skin No Abnormality Appearance) (Pt Warm) -Tenderness on Palpation (Deborah-wound No Skin Appearance) -Ulcer Cleansing Rinsed/ Irrigated with Saline -Foul Odor after Cleansing No -Anesthetic Used 5% Lidocaine Gel WC - Nurse 2 - General Ulcer CM Notes Start: 04/19/18 08:44 Freq: Status: Active Protocol: Activity Type Activity Date Activity User E-Sign Co-Sign Detail Recorded Client Recorded Date Recorded By Document 05/10/18 08:48 MW [id number] 05/10/18 08:49 MW 05/10/18 08:48 Wound Center Nurse 2 [Procedure/Treatment] -Time 08:48 -Correct Patient Yes -Correct Side, Site, Position Yes -Correct Procedure Yes -Procedure Performed Yes -Type of Procedure Debridement -Clinical Debridement Subcutaneous -Post Debridement Size (cm) - Length 0.7 -Post Debridement Size (cm) - Width 0.2 -Post Debridement Size (cm) - Depth 0.1 -Total Square Cm 0.14 -Wound/Ulcer Outcome Not Healed -Ulcer Cleansing Rinsed/ Irrigated with Saline -Foul Odor after Cleansing No -Bioengineered Tissue No -Bleeding Controlled with Pressure -Offloading No -Treatment Response Procedure Tolerated Well [See Physician Procedure note for Specifics] Pain Scale: 0-10 Numeric [Pain] -Is Patient Pain Free? Yes Musculoskeletal: No Muscle Wasting Neurological: Cranial nerves II-XII grossly intact Psych/Mental Status: Normal Affect Debridement Note Post-Debridement Measurements/Treatment - Nurse 2 - General Ulcer CM Notes Start: 04/19/18 08:44 Freq: Status: Active Protocol: Activity Type Activity Date Activity User E-Sign Co-Sign Detail Recorded Client Recorded Date Recorded By Document 04/19/18 09:37 MW [id number] 04/19/18 09:43 MW Document 04/26/18 08:39 MW [id number] 04/26/18 08:45 MW Document 05/03/18 09:42 MW [id number] 05/03/18 09:44 MW Document 05/10/18 08:48 MW [id number] 05/10/18 08:49 MW 04/19/18 04/26/18 05/03/18 09:37 08:39 09:42 Wound Center Nurse 2 #1 LMidle Finger -Time 09:37 08:39 09:43 -Correct Patient Yes Yes Yes -Correct Side, Site, Position Yes Yes Yes -Correct Procedure Yes Yes Yes -Procedure Performed Yes Yes Yes -Type of Procedure Debridement Debridement Debridement -Clinical Debridement Subcutaneous Subcutaneous Subcutaneous -Post Debridement Size (cm) - Length 2.0 1.3 1.1 -Post Debridement Size (cm) - Width 1.0 0.6 0.5 -Post Debridement Size (cm) - Depth 0.2 0.1 0.1 -Total Square Cm 2.00 0.78 0.55 -Wound/Ulcer Outcome Not Healed Not Healed Not Healed -Ulcer Cleansing Rinsed/ Rinsed/ Rinsed/ Irrigated with Irrigated with Irrigated with Saline Saline Saline -Foul Odor after Cleansing No No No -Bioengineered Tissue No No No -Bleeding Controlled with Pressure Pressure Pressure -Offloading No No No -Treatment Response Procedure Procedure Procedure Tolerated Well Tolerated Well Tolerated Well Pain Scale: 0-10 Numeric Is Patient Pain Free? Yes Yes Yes 05/10/18 08:48 Wound Center Nurse 2 #1 [facility] Finger -Time 08:48 -Correct Patient Yes -Correct Side, Site, Position Yes -Correct Procedure Yes -Procedure Performed Yes -Type of Procedure Debridement -Clinical Debridement Subcutaneous -Post Debridement Size (cm) - Length 0.7 -Post Debridement Size (cm) - Width 0.2 -Post Debridement Size (cm) - Depth 0.1 -Total Square Cm 0.14 -Wound/Ulcer Outcome Not Healed -Ulcer Cleansing Rinsed/ Irrigated with Saline -Foul Odor after Cleansing No -Bioengineered Tissue No -Bleeding Controlled with Pressure -Offloading No -Treatment Response Procedure Tolerated Well Pain Scale: 0-10 Numeric Is Patient Pain Free? Yes Wound debrided: Left middle finger Wound Grade/Stage: Stage II Type of Debridement: Excisional debridement Anesthesia Used: 4% Lidocaine Solution Depth: Down to and including healthy tissue, in the subcutaneous layer Percentage of wound debrided: 100 Instrument Used: 3mm curette Tissue Removed: Slough and devitalized tissue Severity: Fat Layer Exposed Amount of bleeding with debridement: Mild Bleeding Controlled with: Pressure Patient tolerated procedure well Assessment/Plan Active Problems Traumatic wound (Acute) Left middle finger. With fat layer exposed. Assessment: Nonhealing traumatic wound to left middle finger with fat layer exposed. Plan: Improving. No concerns. Debridement done as documented above. Procedure was well-tolerated. Continue Sheila daily with Adaptic over top. Okay to DC splint. Elevate extremity as often as possible. All her questions were answered and she was advised to call with any further questions or concerns. Follow-up in 1 week. This note was generated with [employer] dictation software. It may contain incorrect words, spelling, and punctuation that were not noted in checking the note before signing.
== END 2018-05-11 23:59 ==
LOC: WC 08:00
PROVIDERS: Referring Provider Internal Medicine; Visit Provider Internal Medicine
DX: S67.193A Crushing injury of left middle finger, initial encounter (principal); X58.XXXA Exposure to other specified factors, initial encounter; Y93.89 Activity, other specified; Y92.89 Other specified places as the place of occurrence of the external cause; Y99.0 Civilian activity done for income or pay; F17.200 Nicotine dependence, unspecified, uncomplicated
CPT/HCPCS: 11042

== ENCOUNTER 2018-05-24 08:00 | Outpatient (RCR) | payer SELFPAY ==
[2018-05-12 01:29] VITALS: BP 130/78; PULSE 86; RESP 18; TEMP 35.9
[2018-05-17 08:51] VITALS: BP 115/77; PULSE 16; RESP 16; TEMP 37.1; BMI 26.7
--- NOTE | 2018-05-17 09:37 | PCM.WC.PN ---
(1) Traumatic wound Status: Acute Current Visit: Yes Comment: Left middle finger. With fat layer exposed. Type of Wound Chief Complaint: Nonhealing left middle finger wound. History of Wound: Ms. Iraheta is a 37-year-old who was in her stable state of health until about 3 weeks ago when she sustained an injury to her left middle finger at work. She was working on some parts and had a finger crushed in the middle. She was subsequently seen at an career development facilitator center and had stitches to the wound. She has however noted persistent pain and swelling of the finger. She states that she has had 2 x-rays done without any significant concerns for osteomyelitis. She also denies any significant discharge from the wound. She has noted some change in color. Progress of Wound: Improving. No new concerns at this time. - Physical Exam Vital Signs Temp Pulse Resp BP 98.7 F 16 L 16 115/77 05/17/18 08:51 05/17/18 08:51 05/17/18 08:51 05/17/18 08:51 General: Alert, Oriented x3, Cooperative, No apparent distress HEENT: Atraumatic, Normocephalic Oral: Moist Mucosa Neck: Supple Lungs: Normal air movement Extremities: No cyanosis Skin: Ulcer/ Wound Wound Measurements and Assessment WC - Nurse 1 - General Ulcer Measurement Start: 05/17/18 08:51 Freq: Status: Active Protocol: Activity Type Activity Date Activity User E-Sign Co-Sign Detail Recorded Client Recorded Date Recorded By Document 05/17/18 08:51 DV [id number] 05/17/18 08:56 DV 05/17/18 08:51 Wound Center Nurse 1 [Ulcer Assessment] #1 LMidle Finger -Combined with other wound No -Current Size (cm) - Length 0.4 -Current Size (cm) - Width 0.1 -Current Size (cm) - Depth 0.1 -Total Square Cm 0.04 -Date of Last Picture (Recall this 05/17/18 field) -Photo Taken Yes -Epithelialization Small 1-33% -Tunneling No -Undermining/Tunneling No -Circular Undermining No -Classification - Thickness Full Thickness without Exposed Support Structure -Exudate Amt None Present -Wound Margin Thickened -Granulation Amt None Present (0 %) -Granulation Quality N/A -Slough/Fibrin Yes -Necrosis Amt Small (1-33%) -Necrotic Tissue Type Adherent Slough -Structure Exposed N/A -Texture (Deborah-wound Skin Appearance) Assessed Scarring -Moisture (Deborah-wound Skin Appearance Assessed ) Dry/Scaly -Color (Deborah-wound Skin Appearance) No Abnormality Assessed -Temperature (Deborah-wound Skin No Abnormality Appearance) (Pt Warm) -Ulcer Cleansing Rinsed/ Irrigated with Saline -Foul Odor after Cleansing No -Anesthetic Used 4% Lidocaine Solution - Nurse 2 - General Ulcer CM Notes Start: 05/17/18 08:51 Freq: Status: Active Protocol: Activity Type Activity Date Activity User E-Sign Co-Sign Detail Recorded Client Recorded Date Recorded By Document 05/17/18 09:12 MW [id number] 05/17/18 09:13 MW 05/17/18 09:12 Wound Center Nurse 2 [Procedure/Treatment] -Time 09:12 -Correct Patient Yes -Correct Side, Site, Position Yes -Correct Procedure Yes -Procedure Performed Yes -Type of Procedure Debridement -Clinical Debridement Selective -Post Debridement Size (cm) - Length 0.1 -Post Debridement Size (cm) - Width 0.1 -Post Debridement Size (cm) - Depth 0.1 -Total Square Cm 0.01 -Wound/Ulcer Outcome Not Healed -Ulcer Cleansing Rinsed/ Irrigated with Saline -Foul Odor after Cleansing No -Bioengineered Tissue No -Bleeding Controlled with Pressure -Offloading No -Treatment Response Procedure Tolerated Well [See Physician Procedure note for Specifics] Pain Scale: 0-10 Numeric [Pain] -Is Patient Pain Free? Yes Musculoskeletal: No Muscle Wasting Neurological: Cranial nerves II-XII grossly intact Debridement Note Post-Debridement Measurements/Treatment - Nurse 2 - General Ulcer CM Notes Start: 05/17/18 08:51 Freq: Status: Active Protocol: Activity Type Activity Date Activity User E-Sign Co-Sign Detail Recorded Client Recorded Date Recorded By Document 05/17/18 09:12 MW [id number] 05/17/18 09:13 MW 05/17/18 09:12 Wound Center Nurse 2 #1 LMidle Finger -Time 09:12 -Correct Patient Yes -Correct Side, Site, Position Yes -Correct Procedure Yes -Procedure Performed Yes -Type of Procedure Debridement -Clinical Debridement Selective -Post Debridement Size (cm) - Length 0.1 -Post Debridement Size (cm) - Width 0.1 -Post Debridement Size (cm) - Depth 0.1 -Total Square Cm 0.01 -Wound/Ulcer Outcome Not Healed -Ulcer Cleansing Rinsed/ Irrigated with Saline -Foul Odor after Cleansing No -Bioengineered Tissue No -Bleeding Controlled with Pressure -Offloading No -Treatment Response Procedure Tolerated Well Pain Scale: 0-10 Numeric Is Patient Pain Free? Yes Wound debrided: Left middle finger Wound Grade/Stage: Stage II Type of Debridement: Selective debridement Anesthesia Used: 4% Lidocaine Solution Depth: Down to and including healthy tissue Percentage of wound debrided: 100 Instrument Used: - - 2mm Tissue Removed: Devitalized tissue Severity: Limited To Skin Breakdown Amount of bleeding with debridement: Mild Bleeding Controlled with: Pressure Patient tolerated procedure well Assessment/Plan Active Problems Traumatic wound (Acute) Left middle finger. With fat layer exposed. Assessment: Nonhealing traumatic wound to left middle finger with fat layer exposed. Plan: Improving. No concerns. Minimal area left. Debridement done as documented above. Procedure was well-tolerated. Continue Sheila daily with Adaptic over top. Elevate extremity as often as possible. All her questions were answered and she was advised to call with any further questions or concerns. Follow-up in 1 week. This note was generated with [employer] dictation software. It may contain incorrect words, spelling, and punctuation that were not noted in checking the note before signing.
[2018-05-24 08:11] VITALS: BP 119/72; PULSE 98; RESP 16; TEMP 36.7; BMI 26.7
--- NOTE | 2018-05-24 08:40 | PCM.WC.PN ---
(1) Traumatic wound Status: Acute Current Visit: Yes Comment: Left middle finger. With fat layer exposed. Type of Wound Chief Complaint: Nonhealing left middle finger wound. History of Wound: Ms. Iraheta is a 37-year-old who was in her stable state of health until about 3 weeks ago when she sustained an injury to her left middle finger at work. She was working on some parts and had a finger crushed in the middle. She was subsequently seen at an career law clerk center and had stitches to the wound. She has however noted persistent pain and swelling of the finger. She states that she has had 2 x-rays done without any significant concerns for osteomyelitis. She also denies any significant discharge from the wound. She has noted some change in color. Progress of Wound: Healed. - Physical Exam Vital Signs Temp Pulse Resp BP 98.0 F 98 16 119/72 05/24/18 08:11 05/24/18 08:11 05/24/18 08:11 05/24/18 08:11 General: Alert, Oriented x3, Cooperative, No apparent distress HEENT: Atraumatic, Normocephalic Oral: Moist Mucosa Neck: Supple Lungs: Normal air movement Cardiovascular: Regular rate, Regular Rhythm Abdomen: Non Tender Extremities: No cyanosis Wound Measurements and Assessment WC - Nurse 1 - General Ulcer Measurement Start: 05/17/18 08:51 Freq: Status: Active Protocol: Activity Type Activity Date Activity User E-Sign Co-Sign Detail Recorded Client Recorded Date Recorded By Document 05/24/18 08:11 DV [id number] 05/24/18 08:15 DV 05/24/18 08:11 Wound Center Nurse 1 [Ulcer Assessment] #1 LMidle Finger -Combined with other wound No -Current Size (cm) - Length 0.1 -Current Size (cm) - Width 0.1 -Current Size (cm) - Depth 0.1 -Total Square Cm 0.01 -Photo Taken Yes -Tunneling No -Undermining/Tunneling No -Circular Undermining No -Exudate Amt None Present -Granulation Amt None Present (0 %) -Granulation Quality N/A -Slough/Fibrin No -Structure Exposed N/A -Texture (Deborah-wound Skin Appearance) No Abnormality Assessed -Moisture (Deborah-wound Skin Appearance No Abnormality ) Assessed -Color (Deborah-wound Skin Appearance) No Abnormality Assessed -Temperature (Deborah-wound Skin No Abnormality Appearance) (Pt Warm) -Tenderness on Palpation (Deborah-wound No Skin Appearance) -Foul Odor after Cleansing No Musculoskeletal: No Muscle Wasting Neurological: Cranial nerves II-XII grossly intact Psych/Mental Status: Normal Affect Debridement Note Post-Debridement Measurements/Treatment WC - Nurse 2 - General Ulcer CM Notes Start: 05/17/18 08:51 Freq: Status: Active Protocol: Activity Type Activity Date Activity User E-Sign Co-Sign Detail Recorded Client Recorded Date Recorded By Document 05/17/18 09:12 MW [id number] 05/17/18 09:13 MW 05/17/18 09:12 Wound Center Nurse 2 #1 LMidle Finger -Time 09:12 -Correct Patient Yes -Correct Side, Site, Position Yes -Correct Procedure Yes -Procedure Performed Yes -Type of Procedure Debridement -Clinical Debridement Selective -Post Debridement Size (cm) - Length 0.1 -Post Debridement Size (cm) - Width 0.1 -Post Debridement Size (cm) - Depth 0.1 -Total Square Cm 0.01 -Wound/Ulcer Outcome Not Healed -Ulcer Cleansing Rinsed/ Irrigated with Saline -Foul Odor after Cleansing No -Bioengineered Tissue No -Bleeding Controlled with Pressure -Offloading No -Treatment Response Procedure Tolerated Well Pain Scale: 0-10 Numeric Is Patient Pain Free? Yes No debridement was completed today Assessment/Plan Active Problems Traumatic wound (Acute) Left middle finger. With fat layer exposed. Assessment: Nonhealing traumatic wound to left middle finger with fat layer exposed. - Healed. Plan: Healed. No debridement done today. Cover with [employer] for 2 weeks. All her questions were answered and she was advised to call with any further questions or concerns. Discharged from the wound center. This note was generated with [employer] software. It may contain incorrect words, spelling, and punctuation that were not noted in checking the note before signing.
--- NOTE | 2018-05-24 08:43 | PN.PCM_ITS ---
(1) Traumatic wound Status: Acute Current Visit: Yes Comment: Left middle finger. With fat lay er exposed. Type of Wound Chief Complaint: Nonhealing left middle finger wound. History of Wound: Ms. Iraheta is a 37-year-old who was in her stable state of health until about 3 weeks ago when she sustained an injury to her left middle finger at work. She was working on some parts and had a finger crushed in the middle. She was subsequently seen at an [facility] managed care center and had stitches to the wound. She has however noted persistent pain and swelling of the finger. She states that she has had 2 x-rays done without any significant concerns for osteomyelitis. She also denies any significant discharge from the wound. She has noted some change in color. Progress of Wound: Healed. - Physical Exam Vital Signs Temp Pulse Resp BP 98.0 F 98 16 119/72 05/24/18 08:11 05/24/18 08:11 05/24/18 08:11 05/24/18 08:11 General: Alert, Oriented x3, Cooperative, No apparent distress HEENT: Atraumatic, Normocephalic Oral: Moist Mucosa Neck: Supple Lungs: Normal air movement Cardiovascular: Regular rate, Regular Rhythm Abdomen: Non Tender Extremities: No cyanosis Wound Measurements and Assessment WC - Nurse 1 - General Ulcer Measurement Start: 05/17/18 08:51 Freq: Status: Active Protocol: Activity Type Activity Date Activity User E-Sign Co-Sign Detail Recorded Client Recorded Date Recorded By Document 05/24/18 08:11 DV [id number] 05/24/18 08:15 DV 05/24/18 08:11 Wound Center Nurse 1 [Ulcer Assessment] #1 LMidle Finger -Combined with other wound No -Current Size (cm) - Length 0.1 -Current Size (cm) - Width 0.1 -Current Size (cm) - Depth 0.1 -Total Square Cm 0.01 -Photo Taken Yes -Tunneling No -Undermining/Tunneling No -Circular Undermining No -Exudate Amt None Present -Granulation Amt None Present (0 %) -Granulation Quality N/A -Slough/Fibrin No -Structure Exposed N/A -Texture (Deborah-wound Skin Appearance) No Abnormality Assessed -Moisture (Deborah-wound Skin Appearance No Abnormality ) Assessed -Color (Deborah-wound Skin Appearance) No Abnormality Assessed -Temperature (Deborah-wound Skin No Abnormality Appearance) (Pt Warm) -Tenderness on Palpation (Deborah-wound No Skin Appearance) -Foul Odor after Cleansing No Musculoskeletal: No Muscle Wasting Neurological: Cranial nerves II-XII grossly intact Psych/Mental Status: Normal Affect Debridement Note Post-Debridement Measurements/Treatment WC - Nurse 2 - General Ulcer CM Notes Start: 05/17/18 08:51 Freq: Status: Active Protocol: Activity Type Activity Date Activity User E-Sign Co-Sign Detail Recorded Client Recorded Date Recorded By Document 05/17/18 09:12 MW [id number] 05/17/18 09:13 MW 05/17/18 09:12 Wound Center Nurse 2 #1 LMidle Finger -Time 09:12 -Correct Patient Yes -Correct Side, Site, Position Yes -Correct Procedure Yes -Procedure Performed Yes -Type of Procedure Debridement -Clinical Debridement Selective -Post Debridement Size (cm) - Length 0.1 -Post Debridement Size (cm) - Width 0.1 -Post Debridement Size (cm) - Depth 0.1 -Total Square Cm 0.01 -Wound/Ulcer Outcome Not Healed -Ulcer Cleansing Rinsed/ Irrigated with Saline -Foul Odor after Cleansing No -Bioengineered Tissue No -Bleeding Controlled with Pressure -Offloading No -Treatment Response Procedure Tolerated Well Pain Scale: 0-10 Numeric Is Patient Pain Free? Yes No debridement was completed today Assessment/Plan Active Problems Traumatic wound (Acute) Left middle finger. With fat layer exposed. Assessment: Nonhealing traumatic wound to left middle finger with fat layer exposed. - Healed. Plan: Healed. No debridement done today. Cover with [employer] for 2 weeks. All her questions were answered and she was advised to call with any further questions or concerns. Discharged from the wound center. This note was generated with [employer] software. It may contain incorrect words, spelling, and punctuation that were not noted in checking the note before signing.
== END 2018-06-11 23:59 ==
LOC: WC 08:00
PROVIDERS: Referring Provider Internal Medicine; Visit Provider Internal Medicine
DX: S67.193A Crushing injury of left middle finger, initial encounter (principal); X58.XXXA Exposure to other specified factors, initial encounter; Y93.89 Activity, other specified; Y92.89 Other specified places as the place of occurrence of the external cause; Y99.0 Civilian activity done for income or pay; M79.89 Other specified soft tissue disorders
CPT/HCPCS: 97597; 99211; G0463

== ENCOUNTER → 2023-09-20 | Outpatient (CLI) | payer BC, SELFPAY ==
[2023-09-28 01:58] LABS: Lyme IgG P18 Ab Present (.); Lyme IgG P23 Ab Absent (.); Lyme IgG P28 Ab Absent (.); Lyme IgG P30 Ab Absent (.); Lyme IgG P39 Ab Present (.); Lyme IgG P41 Ab Present (.); Lyme IgG P45 Ab Absent (.); Lyme IgG P58 Ab Present (.); Lyme IgG P66 Ab Absent (.); Lyme IgG P93 Ab Absent (.); Lyme IgG WB Interpretation Negative (.); Lyme IgM P23 Ab Present (.); Lyme IgM P39 Ab Present (.); Lyme IgM WB Interpretation Positive (.)
[2023-09-28 16:05] LABS: Lyme IgM P41 Ab Present (.)
== END | disposition home or self-care (01) ==
PROVIDERS: Referring Provider Physician Assistant; Visit Provider Physician Assistant
DX: M79.10 Myalgia, unspecified site (principal)
CPT/HCPCS: 36415; 86617